=== PATIENT | male | born 1980 | race Caucasian/White ===

== ENCOUNTER 2017-12-07 19:34 | Emergency (ER) | payer MEDICAID ==
[2017-12-07] MEDS ORDERED: LIDOCAINE 5% (700 MG) TRANSDERMAL ADH..PATCH TP ONE (19:51)
[2017-12-07] MEDS ORDERED: NAPROXEN 250 MG TABLET PO ONE (19:51)
[2017-12-07] MEDS ORDERED: METHOCARBAMOL 500 MG TABLET PO ONE (19:51)
--- NOTE | 2017-12-07 19:53 | ER Document Report ---
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 He is also having 1 month of increased cough and intermittent gasping. He smokes cigarettes. PE: No respiratory distress. RRR. Tenderness over left lower back, no midline tenderness. I have greeted and performed a rapid initial assessment of this patient. A comprehensive ED assessment and evaluation of the patient, analysis of test results and completion of the medical decision making process will be conducted by additional ED providers. TRAVEL OUTSIDE OF THE [place] IN LAST 30 DAYS: No - Related Data Allergies/Adverse Reactions: No Known Allergies Allergy (Unverified 12/07/17 19:39) Past Medical History - Social History Chew tobacco use (# tins/day): No Frequency of alcohol use: Occasional Drug Abuse: None Renal/ Medical History: Denies: Hx Peritoneal Dialysis Physical Exam - Vital signs Vitals: Temp Pulse Resp BP Pulse Ox 98.4 F 80 16 122/75 98 12/07/17 19:37 12/07/17 19:37 12/07/17 19:37 12/07/17 19:37 12/07/17 19:37 Course - Vital Signs Vital signs: Temp Pulse Resp BP Pulse Ox 98.4 F 80 16 122/75 98 12/07/17 19:37 12/07/17 19:37 12/07/17 19:37 12/07/17 19:37 12/07/17 19:37
--- NOTE | 2017-12-07 20:40 | RADIOLOGY REPORT (SQ) ---
EXAM DESCRIPTION: CHEST 2 VIEWS COMPLETED DATE/TIME: 12/07/2017 8:31 pm REASON FOR STUDY: cough COMPARISON: None. EXAM PARAMETERS: NUMBER OF VIEWS: two views TECHNIQUE: Digital Frontal and Lateral radiographic views of the chest acquired. RADIATION DOSE: NA LIMITATIONS: none FINDINGS: LUNGS AND PLEURA: There is mild interstitial prominence in the lung bases. An area of payne ited opacification is seen in the left upper lobe. MEDIASTINUM AND HILAR STRUCTURES: No masses or contour abnormalities. HEART AND VASCULAR STRUCTURES: Heart normal size. No evidence for failure. BONES: No acute findings. HARDWARE: None in the chest. OTHER: No other significant finding. IMPRESSION: There appear to be chronic lung changes. Cannot exclude limited left upper lobe pneumon ia. Follow-up after treatment to be sure that there is no mass in this area. TECHNICAL DOCUMENTATION: JOB ID: [id number] [email or web address]- All Rights Reserved Reading location - IP/workstation name: [email or web address]
[2017-12-07] MEDS ORDERED: HYDROCODONE/ACETAMINOPHEN 5-325 MG TABLET PO ONE (21:41)
[2017-12-07] MEDS ORDERED: DOXYCYCLINE HYCLATE 100 MG TABLET PO ONE (21:41)
[2017-12-07] MEDS ORDERED: PREDNISONE 20 MG TABLET PO ONE (21:41)
[2017-12-07] MEDS ORDERED: ALBUTEROL SULFATE HFA (90 MCG/PUFF) 8 GM MDI (1 MDI/ER DISP) IH SCH (21:45)
--- NOTE | 2017-12-07 21:46 | ER Document Report ---
ED General - General Chief Complaint: Breathing Difficulty Stated Complaint: BREATHING PROBLEMS AND BACK PAIN Time Seen by Provider: 12/07/17 19:50 Mode of Arrival: Ambulatory Information source: Patient Notes: 37-year-old male with no reported past medical history presents with complaint of cough, shortness of breath and low back pain. Patient states that cough and shortness of breath started 1 month prior to arrival. He describes the cough as a persistent productive cough that is associated with shortness of breath. Patient denies any fever, chills, nausea, vomiting. Back pain is located in the lumbar spine, described as a intermittent burning pain without radiation. 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 Patient does smoke 1 /2 pack per day. TRAVEL OUTSIDE OF THE [place] IN LAST 30 DAYS: No - HPI Onset: Other Onset/Duration: Gradual, Persistent, Worse Quality of pain: Burning Severity: Mild Associated symptoms: Productive cough, Shortness of breath Exacerbated by: Movement Relieved by: Denies Similar symptoms previously: No Recently seen / treated by doctor: No - Related Data Allergies/Adverse Reactions: No Known Allergies Allergy (Unverified 12/07/17 19:39) Past Medical History - General Information source: Patient, [facility] Records - Social History Smoking Status: Current Every Day Smoker Cigarette use (# per day): Yes - 10 Chew tobacco use (# tins/day): No Smoking Education Provided: Yes - Patient counselled regarding cessation for 4 minutes Frequency of alcohol use: Occasional Drug Abuse: None Lives with: Spouse/Significant other Family History: Reviewed & Not Pertinent Patient has suicidal ideation: No Patient has homicidal ideation: No - Medical History Medical History: Negative Renal/ Medical History: Denies: Hx Peritoneal Dialysis Review of Systems - Review of Systems Notes: REVIEW OF SYSTEMS: CONSTITUTIONAL : Denies fever, chills, or sweats. Denies recent illness. Denies weight loss, recent hospitalizations. EENT: Denies visual changes, eye pain. Denies nasal or sinus congestion or discharge. Denies sore throat, oral lesions, difficulty swallowing. CARDIOVASCULAR: Denies chest pain. Denies palpitations. Denies lower extremity edema. RESPIRATORY: GASTROINTESTINAL: Denies abdominal pain or distention. Denies nausea, vomiting , or diarrhea. Denies blood in vomitus, stools, or per rectum. Denies black, tarry stools. Denies constipation. GENITOURINARY: Denies difficulty urinating, painful urination, frequency, blood in urine, or vaginal discharge. MUSCULOSKELETAL: Denies neck pain or stiffness. Denies joint pain or swelling. SKIN: Denies rash, lesions or sores. HEMATOLOGIC : Denies easy bruising or bleeding. LYMPHATIC: Denies swollen glands. NEUROLOGICAL: Denies confusion or altered mental status. Denies passing out or loss of consciousness. Denies dizziness or lightheadedness. Denies headache. Denies weakness or paralysis. Denies problems difficulty with ambulation, slurred speech. Denies sensory loss, numbness, or tingling. Denies seizures. PSYCHIATRIC: Denies anxiety or stress. Denies depression, suicidal ideation, or homicidal ideation. Denies visual or auditory hallucinations. Physical Exam - Vital signs Vitals: Temp Pulse Resp BP Pulse Ox 98.4 F 80 16 122/75 98 12/07/17 19:37 12/07/17 19:37 12/07/17 19:37 12/07/17 19:37 12/07/17 19:37 - Notes Notes: PHYSICAL EXAMINATION: GENERAL: Well-appearing, well-nourished and in no acute distress. HEAD: Atraumatic, normocephalic. EYES: Pupils equal round and reactive to light, extraocular movements intact, sclera anicteric, conjunctiva are normal. ENT: Nares patent, oropharynx clear without exudates. Moist mucous membranes. NECK: Normal range of motion, supple without lymphadenopathy LUNGS: Breath sounds clear to auscultation bilaterally and equal. No wheezes rales or rhonchi. HEART: Regular rate and rhythm without murmurs ABDOMEN: Soft, nontender, nondistended abdomen. No guarding, no rebound. No masses appreciated. Musculoskeletal: Normal range of motion, no pitting or edema. No cyanosis. NEUROLOGICAL: Cranial nerves grossly intact. Normal speech, normal gait. Normal sensory, motor exams PSYCH: Normal mood, normal affect. SKIN: Warm, Dry, normal turgor, no rashes or lesions noted. Course - Re-evaluation Re-evalutation: Chest X-Ray 12/07/17 19:50 IMPRESSION: There appear to be chronic lung changes. Cannot exclude limited left upper lobe pneumonia. Follow-up after treatment to be sure that there is no mass in this area. 12/08/17 03:35 37-year-old male with no reported past medical history presents with complaint of cough, shortness of breath and low back pain. Patient states that cough and shortness of breath started 1 month prior to arrival. He describes the cough as a persistent productive cough that is associated with shortness of breath. Patient denies any fever, chills, nausea, vomiting. Back pain is located in the lumbar spine, described as a intermittent burning pain without radiation. 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 Patient does smoke 1 /2 pack per day. Upon arrival vitals were reviewed and within normal limits. Patient does not appear toxic or dehydrated. They are in no acute distress. Chest x-ray concerning for left upper lobe pneumonia. Patient was given his first dose of doxycycline in the emergency department as well as an albuterol MDI. Smoking cessation advised. Patient will follow up with his primary care physician. Patient provided the opportunity to ask questions, and express concerns. Discharge instructions discussed. Patient is agreeable with discharge home. Return indications explained and discussed with the patient who displays understanding. Patient encouraged to return to the emergency department immediately with any concerns. 12/08/17 03:36 - Vital Signs Vital signs: Temp Pulse Resp BP Pulse Ox 98.4 F 71 20 124/70 96 12/07/17 19:37 12/07/17 22:06 12/07/17 22:06 12/07/17 22:06 12/07/17 22:06 - Diagnostic Test Radiology reviewed: Image reviewed, Reports reviewed Discharge - Discharge Clinical Impression: Community acquired pneumonia Qualifiers: Laterality: left Lung location: upper lobe of lung Qualified Code(s): J18.1 - Lobar pneumonia, unspecified organism Low back pain Qualifiers: Chronicity: acute Back pain laterality: left Sciatica presence: without sciatica Qualified Code(s): M54.5 - Low back pain Condition: Good Disposition: HOME, SELF-CARE Instructions: Low Back Pain ([facility]), Pneumonia ([facility]) Prescriptions: Doxycycline Hyclate 100 mg PO BID #14 capsule Prednisone [Deltasone 20 mg Tablet] 3 tab PO DAILY 5 Days #15 tablet Tramadol HCl [Ultram 50 mg Tablet] 50 mg PO Q8H PRN #10 tablet PRN Reason: For Pain Scale 1-3 Forms: Smoking Cessation Education Referrals: BUCK PARADA MD [Primary Care Provider] - Follow up as needed
[2017-12-07 22:07] VITALS: BP 124/70
== END 2017-12-07 22:06 | disposition home or self-care (01) ==
LOC: ER 19:34
DX: J18.1 Lobar pneumonia, unspecified organism (principal); R05 Cough; R06.02 Shortness of breath; M54.5 Low back pain; F17.210 Nicotine dependence, cigarettes, uncomplicated; Z71.6 Tobacco abuse counseling
CPT/HCPCS: 99285; 71046; J3490 ×5; J7512

== ENCOUNTER 2020-02-20 02:48 | Emergency (ER) | payer MEDICAID ==
[2020-02-20 03:11] VITALS: BP 99/60
== END 2020-02-20 05:22 | disposition left against medical advice (07) ==
LOC: ER 02:48
DX: Z53.21 Procedure and treatment not carried out due to patient leaving prior to being seen by health care provider (principal)